=== PATIENT | female | born 1940 | race Caucasian/White ===

== ENCOUNTER 2023-04-01 17:18 | Outpatient (REF) | payer MEDICARE, MEDICAID, SELFPAY | END 2023-04-01 17:19 | disposition home or self-care (01) | LOC: HO.HOSX 17:18 | PROVIDERS: Visit Provider Orthopaedic Surgery | DX: Z13.89 Encounter for screening for other disorder (principal) ==

== ENCOUNTER 2023-07-17 09:22 | Outpatient (REF) | payer MEDICARE, MEDICAID, SELFPAY ==
--- NOTE | ~2023-07-17 | XR_ITS ---
EXAMINATION: XR BILATERAL KNEES CLINICAL INFORMATION: Pain in bilateral knees. COMPARISON: None available. TECHNIQUE: Standing AP, lateral and sunrise views of bilateral knees. FINDINGS: Right Knee: Status post total knee arthroplasty. Hardware appears intact. Moderate suprapatellar effusion. Scattered amorphous calcifications in the suprapatellar region and infrapatellar region. Extensive posterior calcifications are characteristic of vascular calcifications. Left Knee: Status post total knee arthroplasty. Hardware appears intact. Moderate suprapatellar effusion. A few tiny calcifications in the suprapatellar region and infrapatellar region. Extensive posterior calcifications are characteristic of vascular calcifications. XR/XR knee LT 3V IMPRESSION: Status post bilateral total knee arthroplasty. Hardware appears intact. Moderate bilateral suprapatellar effusions.
--- NOTE | ~2023-07-17 | XR_ITS ---
EXAMINATION: XR BILATERAL KNEES CLINICAL INFORMATION: Pain in bilateral knees. COMPARISON: None available. TECHNIQUE: Standing AP, lateral and sunrise views of bilateral knees. FINDINGS: Right Knee: Status post total knee arthroplasty. Hardware appears intact. Moderate suprapatellar effusion. Scattered amorphous calcifications in the suprapatellar region and infrapatellar region. Extensive posterior calcifications are characteristic of vascular calcifications. Left Knee: Status post total knee arthroplasty. Hardware appears intact. Moderate suprapatellar effusion. A few tiny calcifications in the suprapatellar region and infrapatellar region. Extensive posterior calcifications are characteristic of vascular calcifications. XR/XR knee RT 3V IMPRESSION: Status post bilateral total knee arthroplasty. Hardware appears intact. Moderate bilateral suprapatellar effusions.
== END 2023-07-17 09:23 | disposition home or self-care (01) ==
LOC: HO.HOSX 09:22
PROVIDERS: Visit Provider Orthopaedic Surgery
DX: M25.561 Pain in right knee (principal); M25.562 Pain in left knee
CPT/HCPCS: 73562; 99212

== ENCOUNTER 2023-07-17 13:20 | Outpatient (AMB) | payer MEDICARE, MEDICAID, SELFPAY ==
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
== END 2023-07-17 14:14 | disposition home or self-care (01) ==
PROVIDERS: Visit Provider Orthopaedic Surgery
DX: M25.561 Pain in right knee (principal); M25.562 Pain in left knee; Z96.653 Presence of artificial knee joint, bilateral
CPT/HCPCS: 99213

== ENCOUNTER 2024-04-21 09:21 | Outpatient (REF) | payer MEDICARE, MEDICAID, SELFPAY | END 2024-04-21 09:22 | disposition home or self-care (01) | LOC: HO.HOSX 09:21 | PROVIDERS: Visit Provider Orthopaedic Surgery | DX: Z13.89 Encounter for screening for other disorder (principal) ==

== ENCOUNTER 2024-05-26 09:18 | Outpatient (REF) | payer MEDICARE, MEDICAID, SELFPAY | END 2024-05-26 09:19 | disposition home or self-care (01) | LOC: HO.HOSX 09:18 | PROVIDERS: Visit Provider Orthopaedic Surgery | DX: R25.1 Tremor, unspecified (principal) | CPT/HCPCS: 99212 ==

== ENCOUNTER 2024-05-26 10:53 | Outpatient (AMB) | payer MEDICARE, MEDICAID, SELFPAY ==
--- NOTE | 2024-05-26 10:55 | A.OFFVIS_ITS ---
Intake Visit Reasons: Left hand tremor Intake Note: Ludmila is an 84 year old female who presents with complaints of a tremor in her left hand when she is carrying objects. The patient denies any tremor at rest. She states that she notices it when she reaches to grab something. She has dropped objects because of the tremor. She has been told that she does not have Parkinson's disease. She does not think that she has been evaluated by a neurologist. She has been seen by Dr. Hidalgo who is a neurosurgeon here at [facility]. Allergies No Known Allergies Allergy (Verified 05/26/24 10:57) Medication List - Last Reconciled 05/26/24 by Robert Hernandez MD acetaminophen (Tylenol) 325 mg PO QID PRN amoxicillin 2,000 mg (4 x 500 mg) PO ONCE 1 day apixaban (Eliquis) 2.5 mg PO BID atorvastatin 20 mg PO DAILY buspirone 5 mg PO BID ezetimibe 10 mg PO DAILY fluticasone propionate 50 mcg/actuation 1 spray intranasal DAILY hydralazine 25 mg PO BID hydrocortisone 2.5% (Procto-Med HC) 1 appl [place] BID-QID PRN losartan 50 mg PO BID metoprolol succinate ER 50 mg PO DAILY tizanidine 2 mg PO BID [facility] Surgical History (Updated 07/17/23 @ 13:57 by rBea Peralta CMA) Hx of shoulder surgery (~2007) Hx of shoulder surgery (~2006) Hx of right knee surgery (~12/2009) Hx of left knee surgery (~08/2003) Physical Exam Extrem Other: Left upper extremity examination shows no resting tremor, she does have an intentional tremor when holding objects Assessment & Plan Assessment & Plan (1) Tremor of left hand: Code(s): R25.1 - Tremor, unspecified Category: Medical Plan Ludmila is an 84-year-old female who presents with a left upper extremity intentional tremor of unclear etiology. I discussed with the patient the fact that the tremor may be age related and not necessarily pathologic. I did recommend that the patient be evaluated by a neurologist. I did put in a referral to the [facility] Neurology Department. If the patient's insurance company does not cover such a consultation I recommended that she see Neurology within the [facility]. Feel free to call me at any time should questions regarding her orthopedic management arise. I spent 22 minutes in reviewing the patient's records and imaging studies, seeing the patient and documenting in the medical record. Orders: Referrals Neurology Referral R25.1 - Tremor, unspecified Medications: Changed From amoxicillin take 4 capsules 1 hr prior to dental procedure 2,000 mg (4 x 500 mg) PO ONCE 1 day 4 tabs 3RF To amoxicillin take 4 capsules 1 hr prior to any dental procedures 2,000 mg (4 x 500 mg) PO ONCE 20 tabs 3RF Coding Level of Care Code Est Pt Level 3 (83983) Complex EM visit Add On G2211 Diagnoses Tremor of left hand R25.1
== END 2024-05-26 11:48 | disposition home or self-care (01) ==
PROVIDERS: PCP Internal Medicine; Visit Provider Orthopaedic Surgery
DX: R25.1 Tremor, unspecified (principal)
CPT/HCPCS: 99213; G2211

== ENCOUNTER 2024-07-01 14:33 | Outpatient (AMB) | payer MEDICARE, MEDICAID, SELFPAY ==
[2024-07-01 14:50] VITALS: BP 180/82; BMI 29.3
--- NOTE | 2024-07-01 14:50 | A.OFFVIS_ITS ---
Vital Signs 07/01/24 14:50 Height 5 ft 1 in Weight 155 lb BMI 29.3 BP 180/82 H Blood Pressure Location Rt brachial Position Sitting Intake Visit Reasons: INP-Tremors Intake Note: Patient presents for tremors Allergies No Known Allergies Allergy (Verified 07/01/24 14:52) Medication List - Last Reconciled 07/01/24 by Barbara East MD acetaminophen (Tylenol) 325 mg PO QID PRN amoxicillin 2,000 mg (4 x 500 mg) PO ONCE apixaban (Eliquis) 2.5 mg PO BID atorvastatin 20 mg PO DAILY buspirone 5 mg PO BID ezetimibe 10 mg PO DAILY fluticasone propionate 50 mcg/actuation 1 spray intranasal DAILY hydralazine 25 mg PO BID hydrocortisone 2.5% (Procto-Med HC) 1 appl [place] BID-QID PRN losartan 50 mg PO BID metoprolol succinate ER 50 mg PO DAILY tizanidine 2 mg PO BID HPI Comments Details: 84y/o Right handed female comes for evaluation of tremors. She noticed tremors in her left hand when she holds something in her hand in 2020. she dismissed it thinking it was related to arthritis, blood clots( on eliquis- cephalic vein) etc. But since 2020 the tremors have increased and has some discomfort in left elbow. No rest tremors. It is usually when she holds her forearm up . No right hand or leg tremors No change in her voice. she has deg disc disease and her gait issues are related to that. No memory issues she has intermittent neck pain.she has h/o sciatica but doing well now. [facility] Medical History Cervical spondylosis Degenerative arthritis Varicose veins of ankle Arthritis HTN (hypertension) Angina of effort Duodenal bulb ulcer Surgical History Hx of shoulder surgery (~2007) Hx of shoulder surgery (~2006) Hx of right knee surgery (~12/2009) Hx of left knee surgery (~08/2003) Physical Exam Vital Signs: Last Vital Signs BP 180/82 H 07/01/24 14:50 BMI result Body Mass Index 29.3 Const General: cooperative, comfortable and no acute distress Nutritional Appearance: average body habitus Orientation/consciousness: patient oriented x3 Eyes Pupils: Equal, round and reactive pupils present Neuro Other: no rest tremors normal facial expression and blink speech was normal Neck - mild restricted range of motion gait mild antalgic gait No cogwheel rigidity General: patient oriented x3, gait normal, tone normal, moves all extremities and no focal motor deficits Cranial nerves: Yes Facial sensation intact/muscles of mastication intact, Yes Equal, round and reactive pupils present, Yes Bilaterally intact EOM present, Yes Nystagmus not present, Yes Normal facial strength present, Yes Midline tongue present and Yes Ability to bilaterally elevate shoulders present Cognition (Neuro): normal cognition Gait exam (Neuro): Antalgic gait present Motor exam (neuro): 5/5 motor strength present throughout and Normal motor muscle tone present throughout Deep tendon reflexes (DTR's): Right triceps reflex intensity grade: 1+, Left triceps reflex intensity grade: 1+, Rt Biceps (C5, C6): 1+, Left biceps reflex intensity grade: 1+, Right brachioradialis reflex intensity grade: 1+, Left brachioradialis reflex intensity grade: 1+, Right patellar reflex intensity grade: 1+ and Left patellar reflex intensity grade: 1+ Coordination: [id number] test normal Assessment & Plan Assessment & Plan (1) Tremor of left hand: Comment: senile tremors - likley related to pain and arthritis Code(s): R25.1 - Tremor, unspecified Category: Medical Plan No evidence of parkinsons on todays exam She is doing well on her ADLs so will hold off on medications she will call me if her tremors worsen Coding Level of Care Code New Pt Level 4 (67180) Diagnoses Tremor of left hand R25.1
== END 2024-07-01 15:29 | disposition home or self-care (01) ==
PROVIDERS: PCP Internal Medicine; Visit Provider Psychiatry & Neurology Neurology
DX: R25.1 Tremor, unspecified (principal)
CPT/HCPCS: 99204

== ENCOUNTER → 2024-07-01 14:33 | Outpatient (BNVA) | payer MEDICARE, MEDICAID, SELFPAY | PROVIDERS: PCP Internal Medicine; Visit Provider Psychiatry & Neurology Neurology | DX: R25.1 Tremor, unspecified (principal) | CPT/HCPCS: 99202 ==

== ENCOUNTER 2024-11-26 09:11 | Outpatient (REF) | payer MEDICARE, MEDICAID, SELFPAY ==
--- OUTSIDE RECORDS SUMMARY | 2024-11-26 12:10 | XMS_ITS | Encounter Summary ---
Author Organization [facility] Address [address] [place] [address] Care Team Providers Care Charge Out Clerk Name Role Phone Tiffanie Jesus MD Primary Care Provider [phone] Reason for Visit * Reason Onset Date Comments Lab Results 11/12/2024 Encounter Details Date Type Department Care Team (Late st Contact Info) Description 11/12/2024 Telephone [facility] - [facility] [address] [facility] [address] [place] [address] Ron Chavez MD [address] [place] [address] Lab Results Social History Tobacco Use Types Packs/Day Years Used Date Smoking Tobacco: Never Smokeless Tobacco: Never Alcohol Use Standard Drinks/Week Comments No 0 (1 standard drink = 0.6 oz pur e alcohol) Comments No Sex and Gender Information Value Date Recorded Sex Assigned at Not on file Legal Sex Female 3:25 PM EST Gender Identity Not on file Sexual Orientation Not on file documented as of this encounter Progress Notes * Yisel Vasques MA - 11/22/2024 9:33 AM EDT Called patient to give results was unable to leave a message, called patient daughter Angela and left a message to give us a call. Was not aware that the patient did not want a call to mail results.Sorry next time please if they message could be forward to the [place] so I am aware of this. * Bria Monson - 11/12/2024 9:58 AM EDT Patient called in regarding her lab results from 11/02/24. Patient states she would like her results mailed to her. Please do not call her she specified mail only. documented in this encounter Plan of Treatment Upcoming Encounters Date Type Department Care Team (Late st Contact Info) Description 05/20/2025 10:40 AM EST Office Visit [facility] - [facility] [address] [phone] Janet Montgomery NP 300 [facility] [address] [place] [address] 11/04/2025 11:00 AM EDT Office Visit [facility] Hematology Oncology [address] [place] [phone] Omid Givens MD [address] [place] [phone] documented as of this encounter Visit Diagnoses Not on filedocumented in this encounter Care Teams Charge Out Clerk Relationship Specialty Start Date End Date Tiffanie Jesus MD 175 [facility] [address] [place] [phone] PCP - General Internal Medicine 05/09/21 documented as of this encounter
== END 2024-11-26 09:12 | disposition home or self-care (01) ==
LOC: HO.HOSX 09:11
PROVIDERS: Visit Provider Physician Assistant
DX: Z13.89 Encounter for screening for other disorder (principal)

== ENCOUNTER 2024-12-02 13:10 | Outpatient (AMB) | payer MEDICARE, MEDICAID, SELFPAY ==
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
[2024-12-02 13:36] VITALS: BMI 29.3
--- OUTSIDE RECORDS SUMMARY | 2024-12-02 15:48 | XMS_ITS | Encounter Summary ---
Author Organization [facility] Address [address] [place] [address] Care Team Providers Care Space Officer Name Role Phone Tiffanie Jesus MD Primary Care Provider [phone] Reason for Visit * Reason Onset Date Comments Fax office notes 11/25/2024 Encounter Details Date Type Department Care Team (Late st Contact Info) Description 11/25/2024 Telephone Internal Medicine - [place] [address] [address] Tiffanie Jesus MD 175 [facility] 200 [place] [phone] Fax office notes Social History Tobacco Use Types Packs/Day Years [...] as of this encounter Progress Notes * Tiffanie Jesus MD - 11/26/2024 4:21 PM EDT Not sure * Leeanne Perez MA - 11/25/2024 3:02 PM EDT Please advice, Pt has esteban tomorrow 11/26/24. [facility] called and stated tht they do not have any notes regarding to the right ankle and they do not know why patient is being seen tomorrow because the keshawn note did not mention anything about it. * Ladonna Mtz - 11/25/2024 2:44 PM EDT [facility] called and stated tht they do not have any notes regarding to the right ankle and they do not know why patient is being seen tomorrow because the keshawn note did not mention anything about it. Please advise Cb# [phone] * Molly Hong MA - 11/25/2024 11:49 AM EDT Faxed last office note from 06/24/23 to number provided * Krystle Kim - 11/25/2024 11:06 AM EDT Fax last office note to: [facility] [phone] documented in this encounter Plan of Treatment Upcoming Encounters Date Type Department Care Team (Late st Contact Info) Description 05/20/2025 10:40 AM EST Office Visit [facility] - [facility] [address] [facility] [address] [place] [address] Janet Montgomery NP [address] [place] [address] 11/04/2025 11:00 AM EDT Office Visit [facility] Hematology Oncology [address] [place] [address] Lavern-Omid Morrow MD [address] [place] [address] documented as of this encounter Visit Diagnoses Not on filedocumented in this encounter Care Teams Space Officer Relationship Specialty Start Date End Date Tiffanie Jesus MD [address] [address] PCP - General Internal Medicine 05/09/21 documented as of this encounter
== END 2024-12-02 13:59 | disposition home or self-care (01) ==
LOC: HO.HOS 13:10
PROVIDERS: PCP Internal Medicine
DX: S93.401A Sprain of unspecified ligament of right ankle, initial encounter (principal)
CPT/HCPCS: 99213

== ENCOUNTER 2024-12-02 13:10 | Outpatient (REF) | payer MEDICARE, MEDICAID, SELFPAY ==
--- NOTE | ~2024-12-02 | XR_ITS ---
CLINICAL HISTORY: S92.351A - Displaced fracture of fifth metatarsal bone, right foot, init... Right foot three views Comparison: None provided Findings: No acute fracture or dislocation identified. No acute focal bony abnormality. No radiopaque foreign body noted. Impression: No acute bony abnormality This document has been electronically signed by: Joon Jules MD on 12/02/2024 21:00:08
--- NOTE | ~2024-12-02 | XR_ITS ---
CLINICAL HISTORY: M25.571 - Pain in right ankle and joints of right foot Right ankle two views Comparison: None provided Findings: No acute fracture or dislocation identified. No acute focal bony abnormality. No radiopaque foreign body noted. Impression: No acute bony abnormality This document has been electronically signed by: Joon Jules MD on 12/02/2024 21:00:48
== END 2024-12-02 13:11 | disposition home or self-care (01) ==
LOC: HO.HOSX 13:10
PROVIDERS: PCP Internal Medicine
DX: S92.351A Displaced fracture of fifth metatarsal bone, right foot, initial encounter for closed fracture (principal); S93.401A Sprain of unspecified ligament of right ankle, initial encounter
CPT/HCPCS: 73610; 73630; 99212

== ENCOUNTER → 2024-12-02 13:18 | Outpatient (BNV) | payer MEDICARE, MEDICAID, SELFPAY | PROVIDERS: PCP Internal Medicine; Visit Provider Radiology Diagnostic Radiology | DX: M25.571 Pain in right ankle and joints of right foot (principal); M79.671 Pain in right foot | CPT/HCPCS: 73610; 73630 ==